=== PATIENT | male | born 1950 | race Caucasian/White ===

== ENCOUNTER 2024-06-23 07:30 | Day surgery (SDC) | payer MEDICARE, OTHER ==
[2024-06-23] MEDS ORDERED: Propofol 200 MG/20 ML SDV IV ONE (07:31)
[2024-06-23] MEDS ORDERED: Sodium Chloride 0.9% 10 ML Syringe FLUSH PRN (07:45)
[2024-06-23 08:22] VITALS: BP 150/99; PULSE 88
[2024-06-23] MEDS: Lactated Ringers 1,000 ML IV SCH (08:48)
[2024-06-23] MEDS: Simethicone Drops 40 MG/0.6 ML 30 ML Bottle ONE (09:15)
== END 2024-06-23 10:57 | disposition home or self-care (01) ==
LOC: FB.SDS 07:30
PROVIDERS: ATTEND Surgery
DX: Z12.11 Encounter for screening for malignant neoplasm of colon (principal); R19.5 Other fecal abnormalities; D12.2 Benign neoplasm of ascending colon; D12.6 Benign neoplasm of colon, unspecified; K57.30 Diverticulosis of large intestine without perforation or abscess without bleeding; I10 Essential (primary) hypertension; E78.00 Pure hypercholesterolemia, unspecified; E11.9 Type 2 diabetes mellitus without complications; Z79.84 Long term (current) use of oral hypoglycemic drugs; Z79.899 Other long term (current) drug therapy
CPT/HCPCS: 00811; 82947; 88305; 99100; A9270-GY; J2704; J7120